=== PATIENT | female | born 1995 | race Caucasian/White ===

== ENCOUNTER 2017-03-03 01:03 | Emergency (ER) | payer BC ==
--- NOTE | ~2017-03-03 | CR2 ---
[facility] A Service of [facility] RADIOLOGY TEXT RESULTS PATIENT: JOEL WALTON LOCATION: SED : [birth year] UNIT #: [id number] AGE: [address]: Jose Lai MD SEX: F ORDER DR: [id number] [place] [id number] E MR#: [id number] Acc #: [id number] NAME: JOEL WALTON : 1995 SEX: F STUDY DATE/TIME: 03/03/2017 03:51 UNIT: SED ROOM: STUDY DESCRIPTION: CR Abdomen Acute Series Attending Physician: Jose Lai M.D. Ordering Physician: Jose Lai M.D. Primary Care Physician: Primary Care Physician No MEDICAL IMAGING REPORT This report is preliminary unless electronic signature is present. EXAM Acute abdomen series 03/03/2017 03:51 INDICATION Midepigastric pain with nausea, vomiting for 3 weeks. Digestion problems over the last 8 months. FINDINGS Single frontal view of the chest taken at the time of the abdominal examination is within normal limits. AP, supine, and upright examination of the abdomen shows a normal gas and fecal pattern distribution throughout large and small bowel without distended loops in either area. There is no indication of extraluminal air, unusual visceromegaly, or soft tissue density mass. The renal definitions are fairly well demarcated and normal in shape and size. No abnormal intra-abdominal calcifications are present. IMPRESSION Normal acute abdomen series. Dictated by... Ramy Montemayor Jr., M.D. THIS IS AN ELECTRONICALLY VERIFIED REPORT Ramy Montemayor Jr., M.D. at 03/03/2017 9:14 PM DIANA/lien TD: 03/03/2017 12:01 JOB #: [id number] [facility] A Service of [facility] RADIOLOGY TEXT RESULTS PATIENT: JOEL WALTON LOCATION: SED : [birth year] UNIT #: [id number] AGE: [address]: Jose Lai MD SEX: F ORDER DR: MEDICAL IMAGING REPORT Page 1 of 1
[2017-03-03] MEDS ORDERED: METFORMIN HCL750 MG PO (01:27)
[2017-03-03 02:16] LABS: BASOPHIL# 0.1 X10e3 (0-0.3); BASOPHIL% 0.3 % (0-2.5); EOSINOPHIL# 0.1 X10e3 (0-0.7); EOSINOPHIL% 0.8 % (0.0-7.0); HEMATOCRIT 39.2 % (35.0-45.0); HEMOGLOBIN 13.2 gm/dL (12.0-16.0); LYMPHOCYTE# 1.7 X10e3 (1.0-3.5); LYMPHOCYTE% 10.1 % (17.0-45.0); MEAN CELL VOLUME 86.1 FL (83-96); MEAN CORPUSCULAR HEMOGLOBIN 29.1 PG (28-34); MEAN CORPUSCULAR HGB CONC 33.7 g/dL (30-36); MEAN PLATELET VOLUME 8.3 FL (6.5-11.5); MONOCYTE# 1.5 X10e3 (0-1.0); MONOCYTE% 8.9 % (3.0-12.0); NEUTROPHIL# 13.1 X10e3 (1.5-7.1); NEUTROPHIL% 79.9 % (40-75); PLATELET COUNT 302 X10e3 (140-420); RED BLOOD COUNT 4.55 X10e (3.90-5.30); RED CELL DISTRIBUTION WIDTH 13.8 % (11.0-15.5); WHITE BLOOD COUNT 16.4 X10e3 (4.0-10.5)
[2017-03-03 02:18] LABS: DIFF IND NO
[2017-03-03 02:39] LABS: ALBUMIN SERUM 3.8 g/dL (3.5-5.0); BILIRUBIN,TOTAL 0.3 mg/dL (0.2-2.0); BUN/CREATININE RATIO 14.28; CALCIUM SERUM 9.3 mg/dL (8.4-10.2); CREATININE SERUM 0.7 mg/dL (0.6-1.4); GLOM FILT RATE Estimated 124.7 mL/min (>60); POTASSIUM 3.7 mmol/L (3.5-5.1); PROTEIN TOTAL SERUM 7.2 g/dL (6.0-8.3)
[2017-03-08] MEDS ORDERED: HYDROCODON-ACE1 EAC7 PO (07:27)
[2017-03-08] MEDS ORDERED: LOW OGESTREL PO (07:32)
[2017-03-08] MEDS ORDERED: NITROFURANTOIN100 M4 PO (07:33)
[2017-03-08] MEDS ORDERED: PHENERGAN25 M1 PO (07:34)
[2017-03-08] MEDS ORDERED: SERTRALINE HCL100 M1 PO (07:35)
[2017-03-08] MEDS ORDERED: SPRINTEC PO (07:36)
== END 2017-03-03 04:42 | disposition home or self-care (01) ==
LOC: SED 01:03
DX: K80.50 Calculus of bile duct without cholangitis or cholecystitis without obstruction (principal); E11.9 Type 2 diabetes mellitus without complications; Z79.84 Long term (current) use of oral hypoglycemic drugs
CPT/HCPCS: 36415; 74022; 80053; 83690; 85025; 96361; 96374; 96375; 99284; J2270; J2405

== ENCOUNTER → 2017-03-08 | Day surgery (SDC) | payer BC ==
[~2017-03-08] MED LIST: HYDROCODON-ACE1 EAC7 PO; LOW OGESTREL PO; METFORMIN HCL750 MG PO; NITROFURANTOIN100 M4 PO; PHENERGAN25 M1 PO; SERTRALINE HCL100 M1 PO; SPRINTEC PO
--- NOTE | ~2017-03-08 | OR ---
Unit #: [id number] #: [id number] Patient: JOEL WALTON [id number] [facility] [address] [place], [place] [address] [id number] O MR#: [id number] NAME: JOEL WALTON ROOM: Date of Procedure: 03/08/2017 Admission Date: 03/08/2017 Surgeon: Ramy Estevez M.D. : 1995 Attending Physician: Ramy Estevez M.D. Primary Care Physician: No Primary Care Physician PROCEDURE OPERATIVE NOTE PREOPERATIVE DIAGNOSIS Chronic acalculous cholecystitis. POSTOPERATIVE DIAGNOSIS Chronic acalculous cholecystitis. PROCEDURE PERFORMED Laparoscopic cholecystectomy. ANESTHESIA General endotracheal anesthesia. ESTIMATED BLOOD LOSS Less than 10 mL. INDICATION This is a 21-year-old female who has been having episodic postprandial nausea and right upper quadrant pain for several months. Outpatient HIDA scan showed a 3% ejection fraction. PROCEDURE The patient was admitted to [facility], positively identified and transported to the operating room and after induction of general endotracheal anesthesia she was prepped and draped in usual sterile fashion. 5 mm supraumbilical incision made. Veress needle was placed. Pneumoperitoneum was created and than a 5 mm trocar was placed. Laparoscope was introduced in peritoneal cavity under direct vision in the epigastrium and lateral ports were placed. The gallbladder was grasped and elevated. Adhesions were stripped away and the triangle of Calot was dissected out, clearly identifying the cystic duct, gallbladder and cystic duct-common duct junction. Once we had clearly identified the contents of the triangle of Calot and identified the common bile duct, a single clip was placed on the cystic ducts entered the gallbladder, and three clips were placed distally and the cystic duct sharply divided. Posteriorly the cystic artery was double clipped proximally and distally and divided. Gallbladder was then dissected out of liver bed using cautery dissection and once it was freed up from his hepatic attachments, it was brought out through the epigastric port. There is good hemostasis. Clips were well positioned. The epigastric fascial defect was closed using a neoClose device. The closure was air tight. I then reduced the pneumoperitoneum as I removed the laparoscopic trocars. 1/2% Marcaine with epinephrine was illustrated into each trocar sites. Skin was closed with 4-0 Monocryl Unit #: [id number] #: [id number] Patient: JOEL WALTON subcuticular closure and Dermabond skin adhesive. Findings and postoperative instructions were discussed with her mother. The patient tolerated the procedure well. Sponge, instrument and needle counts were correct x3. Dictated by... Elie White/hua TD: 03/08/2017 12:41 JOB #: [id number] PROCEDURE OPERATIVE NOTE Page 1 of 1 X Ramy Estevez MD X PROCEDURE OPERATIVE NOTE
[2017-03-08 08:16] LABS: HEMOGLOBIN 13.2 gm/dL (12.0-16.0); MEAN CELL VOLUME 86.7 FL (83-96); MEAN CORPUSCULAR HEMOGLOBIN 28.7 PG (28-34); MEAN CORPUSCULAR HGB CONC 33.1 g/dL (30-36); MEAN PLATELET VOLUME 8.3 FL (6.5-11.5); RED BLOOD COUNT 4.61 X10e (3.90-5.30); RED CELL DISTRIBUTION WIDTH 13.7 % (11.0-15.5); WHITE BLOOD COUNT 12.2 X10e3 (4.0-10.5)
[2017-03-08 08:42] LABS: BUN/CREATININE RATIO 16.66; CREATININE SERUM 0.6 mg/dL (0.6-1.4); GLOM FILT RATE Estimated 131.2 mL/min (>60)
== END | disposition home or self-care (01) ==
LOC: CSUR 07:16
PROVIDERS: Specialist
DX: K81.1 Chronic cholecystitis (principal); K66.0 Peritoneal adhesions (postprocedural) (postinfection); E11.9 Type 2 diabetes mellitus without complications; F32.9 Major depressive disorder, single episode, unspecified; F17.210 Nicotine dependence, cigarettes, uncomplicated; Z79.891 Long term (current) use of opiate analgesic; Z79.84 Long term (current) use of oral hypoglycemic drugs; Z79.899 Other long term (current) drug therapy
CPT/HCPCS: 80048; 82947; 84703; 85027; 88304; J0131; J0330; J0690; J1170; J1200; J1885; J2250; J2710; J3010; J3370